=== PATIENT | female | born 1980 | race African-American/Black ===

== ENCOUNTER 2018-04-05 19:37 | Emergency (ER) | payer MEDICAID, OTHER ==
[~2018-04-05] VITALS: Ht 167.6 cm; Wt 82.0 kg
[2018-04-06] MEDS ORDERED: IBUPROFEN 800MG TABLET PO ONE (00:15)
[2018-04-06] MEDS ORDERED: CYCLOBENZAPRINE 10MG TABLET PO ONE (00:15)
[2018-04-06 01:56] VITALS: BP 142/89
== END 2018-04-06 01:58 | disposition home or self-care (01) ==
LOC: ER 21:25
DX: M54.2 Cervicalgia (principal); Z48.00 Encounter for change or removal of nonsurgical wound dressing; L02.811 Cutaneous abscess of head [any part, except face]; F17.210 Nicotine dependence, cigarettes, uncomplicated
CPT/HCPCS: 81025; 99283

== ENCOUNTER 2018-10-23 20:12 | Emergency (ER) | payer OTHER ==
[~2018-10-23] VITALS: Ht 167.6 cm; Wt 84.0 kg
[2018-10-23 21:11] LABS: CLARITY URINE CLEAR (CLEAR); COLOR URINE YELLOW (YELLOW); KETONES URINE NEGATIVE (NEGATIVE); LEUKOCYTE ESTERASE URINE NEGATIVE (NEGATIVE); NITRITE URINE NEGATIVE (NEGATIVE); OCCULT BLOOD URINE 1+ (NEGATIVE); PH URINE 5.5 (4.5-8.0); PROTEIN URINE NEGATIVE (NEGATIVE); SPECIFIC GRAVITY URINE 1.007 (1.005-1.030); UROBILINOGEN URINE 0.2 E.U./dL (0.2-1.0)
[2018-10-23] MEDS ORDERED: KETOROLAC 15MG/ML VIAL IV ONE (22:45)
[2018-10-23 23:25] LABS: BASOPHILS % 0.7 % (0.0-2.0); EOSINOPHILS % 1.4 % (0.0-5.0); HEMATOCRIT. 39.1 % (36.0-48.0); LYMPHOCYTES % 34.3 % (20.0-50.0); MEAN CORPUSCULAR HEMOGLOBIN 29.6 pg (28.0-32.0); MEAN PLATELET VOLUME 9.2 fl (7.4-10.4); MONOCYTES % 6.3 % (2.0-8.0); NEUTROPHILS % 57.3 % (40.0-76.0); PLATELET 174 x1000/uL (130-400); RED BLOOD CELL COUNT 4.39 mill/uL (4.2-5.4)
[2018-10-23 23:35] LABS: CHLORIDE 105 mEq/L (98-107)
[2018-10-23 23:45] VITALS: BP 132/84
== END 2018-10-24 00:10 | disposition home or self-care (01) ==
LOC: ER 20:12
DX: R10.9 Unspecified abdominal pain (principal); F17.200 Nicotine dependence, unspecified, uncomplicated
CPT/HCPCS: 36415; 74176; 81025; 99284

== ENCOUNTER 2019-01-27 09:31 | Emergency (ER) | payer OTHER ==
[~2019-01-27] VITALS: Ht 167.6 cm; Wt 86.0 kg
[2019-01-27] MEDS ORDERED: KETOROLAC 30MG/ML VIAL IV ONE (10:30)
[2019-01-27 10:31] VITALS: BP 166/105
== END 2019-01-27 11:20 | disposition home or self-care (01) ==
LOC: ER 09:31
DX: J20.9 Acute bronchitis, unspecified (principal); I10 Essential (primary) hypertension; F17.200 Nicotine dependence, unspecified, uncomplicated
CPT/HCPCS: 81025; 96374; 99283; J1885

== ENCOUNTER 2019-01-30 00:10 | Emergency (ER) | payer MEDICAID, OTHER ==
[~2019-01-30] VITALS: Ht 167.6 cm; Wt 82.0 kg
[2019-01-30 00:32] VITALS: BP 128/77
== END 2019-01-30 02:30 | disposition left against medical advice (07) ==
LOC: ER 00:10
DX: R06.02 Shortness of breath (principal); Z53.21 Procedure and treatment not carried out due to patient leaving prior to being seen by health care provider

== ENCOUNTER 2019-02-01 15:44 | Emergency (ER) | payer MEDICAID ==
[~2019-02-01] VITALS: Ht 167.6 cm; Wt 81.0 kg
[2019-02-01] MEDS ORDERED: ALBUTEROL (0.5%) 2.5MG/0.5ML NEB HHN ONE (20:00)
[2019-02-01 20:50] VITALS: BP 139/92
== END 2019-02-01 20:58 | disposition home or self-care (01) ==
LOC: ER 15:44
DX: J20.9 Acute bronchitis, unspecified (principal); F17.200 Nicotine dependence, unspecified, uncomplicated
CPT/HCPCS: 71045; 93005; 99283; 99406

== ENCOUNTER 2019-02-18 10:29 | Emergency (ER) | payer MEDICAID ==
[~2019-02-18] VITALS: Ht 167.6 cm; Wt 82.0 kg
[2019-02-18] MEDS ORDERED: ACETAMINOPHEN 500MG TABLET PO ONE (11:45)
[2019-02-18 12:06] LABS: CLARITY URINE CLEAR (CLEAR); COLOR URINE YELLOW (YELLOW); KETONES URINE NEGATIVE (NEGATIVE); LEUKOCYTE ESTERASE URINE NEGATIVE (NEGATIVE); NITRITE URINE NEGATIVE (NEGATIVE); OCCULT BLOOD URINE NEGATIVE (NEGATIVE); PH URINE 8.5 (4.5-8.0); PROTEIN URINE NEGATIVE (NEGATIVE); SPECIFIC GRAVITY URINE 1.013 (1.005-1.030)
[2019-02-18 13:15] VITALS: BP 116/76
== END 2019-02-18 13:40 | disposition home or self-care (01) ==
LOC: ER 10:29
DX: R10.2 Pelvic and perineal pain (principal); F17.200 Nicotine dependence, unspecified, uncomplicated
CPT/HCPCS: 81003; 81025; 99283; Z7610

== ENCOUNTER 2019-04-21 10:10 | Emergency (ER) | payer MEDICAID ==
[~2019-04-21] VITALS: Ht 167.6 cm; Wt 84.0 kg
[2019-04-21 14:31] VITALS: BP 132/80
== END 2019-04-21 14:34 | disposition home or self-care (01) ==
LOC: ER 10:18
DX: R06.09 Other forms of dyspnea (principal); F17.200 Nicotine dependence, unspecified, uncomplicated
CPT/HCPCS: 71045; 81025; 93005; 99283

== ENCOUNTER 2019-05-16 19:54 | Emergency (ER) | payer MEDICAID ==
[~2019-05-16] VITALS: Ht 167.6 cm; Wt 84.0 kg
[2019-05-16 21:12] LABS: CLARITY URINE CLEAR (CLEAR); COLOR URINE YELLOW (YELLOW); KETONES URINE NEGATIVE (NEGATIVE); LEUKOCYTE ESTERASE URINE TRACE (NEGATIVE); NITRITE URINE NEGATIVE (NEGATIVE); OCCULT BLOOD URINE NEGATIVE (NEGATIVE); PROTEIN URINE NEGATIVE (NEGATIVE); SPECIFIC GRAVITY URINE 1.011 (1.005-1.030)
[2019-05-16 21:50] VITALS: BP 126/80
== END 2019-05-16 21:50 | disposition home or self-care (01) ==
LOC: ER 19:54
DX: B37.3 Candidiasis of vulva and vagina (principal); R03.0 Elevated blood-pressure reading, without diagnosis of hypertension; F17.210 Nicotine dependence, cigarettes, uncomplicated
CPT/HCPCS: 99283

== ENCOUNTER 2019-06-01 21:19 | Emergency (ER) | payer MEDICAID ==
[~2019-06-01] VITALS: Ht 167.6 cm; Wt 85.0 kg
[2019-06-01 22:11] VITALS: BP 135/92
== END 2019-06-02 01:30 | disposition left against medical advice (07) ==
LOC: ER 21:44
DX: M54.5 Low back pain (principal); Z53.21 Procedure and treatment not carried out due to patient leaving prior to being seen by health care provider

== ENCOUNTER 2019-06-17 14:30 | Emergency (ER) | payer MEDICAID ==
[~2019-06-17] VITALS: Ht 165.1 cm; Wt 82.0 kg
[2019-06-17] MEDS ORDERED: IPRATROPIUM BROMIDE (0.02%) 0.5MG/2.5ML NEB HHN STA (15:47)
[2019-06-17] MEDS ORDERED: ALBUTEROL (0.083%) 2.5MG/3ML NEB HHN STA (15:47)
[2019-06-17 17:34] VITALS: BP 122/84
== END 2019-06-17 17:34 | disposition home or self-care (01) ==
LOC: ER 14:30
DX: R06.00 Dyspnea, unspecified (principal); F17.210 Nicotine dependence, cigarettes, uncomplicated; Z71.6 Tobacco abuse counseling; R00.1 Bradycardia, unspecified
CPT/HCPCS: 71045; 93005; 94640; 99283; J7611

== ENCOUNTER 2019-06-20 20:52 | Emergency (ER) | payer MEDICAID ==
[~2019-06-20] VITALS: Ht 167.6 cm; Wt 86.5 kg
[2019-06-20 23:14] VITALS: BP 121/76
== END 2019-06-21 00:24 | disposition home or self-care (01) ==
LOC: ER 21:38
DX: J20.9 Acute bronchitis, unspecified (principal); R07.89 Other chest pain; Z87.891 Personal history of nicotine dependence; Z98.890 Other specified postprocedural states
CPT/HCPCS: 99283

== ENCOUNTER 2019-11-22 08:19 | Emergency (ER) | payer MEDICAID, OTHER ==
[~2019-11-22] VITALS: Ht 170.2 cm; Wt 84.0 kg
[2019-11-22 08:41] VITALS: BP 127/88
[2019-11-22 10:07] LABS: EOSINOPHILS % 1.9 % (0.0-5.0); HEMATOCRIT. 37.7 % (36.0-48.0); MEAN CORPUSCULAR VOLUME 87.2 fL (81.0-99.0); MEAN PLATELET VOLUME 8.8 fl (7.4-10.4); MONOCYTES % 8.3 % (2.0-8.0); NEUTROPHILS % 41.8 % (40.0-76.0); PLATELET 173 x1000/uL (130-400); RED BLOOD CELL COUNT 4.33 mill/uL (4.2-5.4); RED CELL DISTRIBUTION WIDTH 15.6 % (11.6-14.6)
[2019-11-22 10:14] LABS: CHLORIDE 113 mEq/L (98-107)
[2019-11-22 10:18] LABS: HCG SCREEN NEGATIVE
== END 2019-11-22 12:10 | disposition home or self-care (01) ==
LOC: ER 08:49
DX: J06.9 Acute upper respiratory infection, unspecified (principal)
CPT/HCPCS: 36415; 71046; 80053; 81025; 84703; 85025; 85379; 87070; 87430; 93005; 99284

== ENCOUNTER 2022-04-25 16:15 | Emergency (ER) | payer MEDICAID, OTHER ==
[~2022-04-25] VITALS: Ht 165.1 cm; Wt 86.0 kg
[2022-04-25 16:28] VITALS: BP 132/93
== END 2022-04-25 19:27 | disposition left against medical advice (07) ==
LOC: ER 16:15
DX: Z53.21 Procedure and treatment not carried out due to patient leaving prior to being seen by health care provider (principal)